=== PATIENT | female | born 1990 | race African-American/Black ===

== ENCOUNTER 2020-06-15 15:32 | Emergency (ER) | payer MEDICAID ==
[~2020-06-15] VITALS: Ht 172.7 cm; Wt 78.0 kg
[2020-06-15] MEDS ORDERED: labetolol (15:45)
[2020-06-15] MEDS ORDERED: SODIUM CHLORIDE 0.9% 1,000 ML IV ONE (16:50)
[2020-06-15] MEDS ORDERED: HYDRALAZINE 20MG/ML VIAL IV ONE (17:00)
[2020-06-15] MEDS ORDERED: KETOROLAC 15MG/ML VIAL IV ONE (17:00)
[2020-06-15 17:17] LABS: BASOPHILS % 1.2 % (0.0-2.0); HEMATOCRIT. 33.8 % (36.0-48.0); HEMOGLOBIN. 10.7 g/dL (12.0-16.0); LYMPHOCYTES % 40.3 % (20.0-50.0); MEAN CORPUSCULAR HEMOGLOBIN 23.9 pg (28.0-32.0); MEAN CORPUSCULAR VOLUME 75.4 fL (81.0-99.0); MEAN PLATELET VOLUME 9.5 fl (7.4-10.4); MONOCYTES % 10.2 % (2.0-8.0); NEUTROPHILS % 46.3 % (40.0-76.0); PLATELET 190 x1000/uL (130-400); RED BLOOD CELL COUNT 4.48 mill/uL (4.2-5.4); RED CELL DISTRIBUTION WIDTH 15.8 % (11.6-14.6)
[2020-06-15 17:22] LABS: CHLORIDE 107 mEq/L (98-107)
[2020-06-15 17:28] LABS: PARTIAL THROMBOPLASTIN TIME 23.1 sec (23.4-31.0); PROTHROMBIN TIME 10.9 sec (9.6-11.0)
[2020-06-15 17:54] LABS: HCG SCREEN NEGATIVE
[2020-06-15] MEDS ORDERED: POTASSIUM CHLORIDE 20MEQ TABLET SR PO ONE (18:00)
[2020-06-15 18:48] VITALS: BP 166/99
== END 2020-06-15 18:50 | disposition home or self-care (01) ==
LOC: ER 15:47
DX: R55 Syncope and collapse (principal); I10 Essential (primary) hypertension; R51 Headache; J45.909 Unspecified asthma, uncomplicated; Z98.890 Other specified postprocedural states
CPT/HCPCS: 36415; 71045; 80053; 81025; 83880; 84484; 84703; 85025; 85610; 85730; 93005; 96361; 96374; 96375; 99285; J0360; J1885; J7030